=== PATIENT | male | born 1975 | race Two or more races ===

== ENCOUNTER 2018-11-24 12:47 | Emergency (ER) | payer SELFPAY ==
[~2018-11-24] VITALS: Ht 167.6 cm; Wt 72.6 kg
[2018-11-24 13:32] LABS: Basophils # (auto) 0.1 uL; Basophils % (auto) 0.8 % (0.0-2.0); Eosinophils # (auto) 0 uL; Hematocrit 38.2 % (41.0-53.0); Hemoglobin 12.9 g/dL (13.5-17.5); Lymphocytes # (auto) 0.5 uL; Lymphocytes % (auto) 7.4 % (10.0-50.0); Mean Corpuscular Hemoglobin 29.6 pg (28.0-32.0); Mean Corpuscular Hgb Conc. 33.7 g/dL (32.0-36.0); Mean Corpuscular Volume 87.8 fL (80.0-100.0); Monocytes # (auto) 0.4 uL; Monocytes % (auto) 6.2 % (0.0-12.0); Neutrophils # (auto) 5.8 uL; Neutrophils % (auto) 85.6 % (37.0-80.0); Platelet Count (auto) 112 10^3/uL (140-450); Red Blood Cells 4.35 10^6/uL (4.5-5.90); Red Cell Distribution Width 13.7 % (11.8-14.3); White Blood Cell 6.7 10^3/uL (4.4-10.8)
[2018-11-24 14:03] LABS: Albumin 4.1 g/dL (3.4-5.0); Anion Gap 9 (5-15); BUN/Creatinine Ratio 13.2; Blood Alcohol < 3.0 mg/dL (0-5); Blood Urea Nitrogen 9 mg/dL (7-18); Carbon Dioxide 28 mmol/L (21-32); Chloride 96 mmol/L (98-107); GFR African American 164 mL/min; GFR Non-African American 136 mL/min; Glucose 204 mg/dL (74-106); Potassium 3.3 mmol/L (3.5-5.1); Sodium 133 mmol/L (136-145)
[2018-11-24 14:06] LABS: Alanine Aminotransferase 109 U/L (16-61); Alkaline Phosphatase 88 U/L (45-117); Aspartate Aminotransferase 107 U/L (15-37); Bilirubin, Total 0.8 mg/dL (0.2-1.0); Total Protein 8.9 g/dL (6.4-8.2)
[2018-11-24 16:57] VITALS: BP 133/85
== END 2018-11-24 18:02 | disposition home or self-care (01) ==
LOC: EDBD 12:47 → ER 12:47
DX: R56.9 Unspecified convulsions (principal); F12.10 Cannabis abuse, uncomplicated
CPT/HCPCS: 36415; 70450; 80053; 80320; 85025; 93005; 94761